=== PATIENT | female | born 2000 | race Caucasian/White ===

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

== ENCOUNTER → 2021-09-30 | Outpatient (CLI) | payer BC ==
[2021-10-01 09:11] LABS: HBSAG SCREEN Negative (Negative); HCV ANTIBODY <0.1 (0.0-0.9); HIV SCREEN 4TH GENERATION WRFX Non Reactive (Non Reactive)
[2021-10-03 04:10] LABS: CHLAMYDIA TRACHOMATIS, NAA Negative (Negative)
== END | disposition home or self-care (01) ==
LOC: LAB SHORT 17:08
PROVIDERS: Advanced Practice Midwife
DX: Z01.419 Encounter for gynecological examination (general) (routine) without abnormal findings (principal); Z11.3 Encounter for screening for infections with a predominantly sexual mode of transmission
CPT/HCPCS: 86592; 86803; 87340; 87389; 87491; 87591; G0123

== ENCOUNTER → 2024-03-23 | Outpatient (CLI) | payer OTHER | LOC: LAB 11:26 → LAB SHORT 11:26 | PROVIDERS: Advanced Practice Midwife | DX: Z01.419 Encounter for gynecological examination (general) (routine) without abnormal findings (principal) | CPT/HCPCS: G0123 ==